=== PATIENT | female | born 1990 | race Caucasian/White ===

== ENCOUNTER 2025-02-12 01:17 | Inpatient (IN) | payer MEDICAID ==
[~2025-02-12] VITALS: Ht 162.6 cm; Wt 77.1 kg
[2025-02-12 02:56] LABS: CARBON DIOXIDE 18 mEq/L (21-32); CHLORIDE 107 mEq/L (98-107); POTASSIUM 3.3 mEq/L (3.5-5.1); SODIUM 138 mEq/L (136-145)
[2025-02-12 02:57] LABS: CALCIUM 9.6 mg/dL (8.7-10.4)
[2025-02-12 02:58] LABS: BASOPHILS % 0.6 % (0.0-2.0); EOSINOPHILS % 4.8 % (0.0-5.0); HEMATOCRIT. 41.5 % (36.0-48.0); HEMOGLOBIN. 13.8 g/dL (12.0-16.0); MEAN CORPUSCULAR HEMOGLOBIN 28.4 pg (28.0-32.0); MEAN CORPUSCULAR HGB CONC 33.3 g/dL (31.0-37.0); MEAN CORPUSCULAR VOLUME 85.1 fL (81.0-99.0); MEAN PLATELET VOLUME 8.6 fl (7.4-10.4); MONOCYTES % 5.5 % (2.0-8.0); NEUTROPHILS % 59.1 % (40.0-76.0); PLATELET 306 x1000/uL (130-400); RED BLOOD CELL COUNT 4.87 mill/uL (4.2-5.4); RED CELL DISTRIBUTION WIDTH 13.5 % (11.6-14.6); WHITE BLOOD COUNT 10.6 x1000/uL (4.5-11.0)
[2025-02-12 03:01] LABS: CREATININE 0.7 mg/dL (0.6-1.0); GLUCOSE 117 mg/dL (70-105)
[2025-02-12 03:02] LABS: UREA NITROGEN BLOOD 16 mg/dL (9-23)
[2025-02-12 03:03] LABS: ALANINE AMINOTRANSFERASE 28 IU/L (10-49); ALBUMIN 4.4 g/dL (3.2-4.8); ASPARTATE AMINOTRANSFERASE 46 IU/L (<34)
[2025-02-12 03:04] LABS: BILIRUBIN TOTAL 0.4 mg/dL (0.1-1.0); PROTEIN TOTAL 6.8 g/dL (6.0-8.3)
[2025-02-12 03:20] LABS: HCG SCREEN NEGATIVE
[2025-02-12] MEDS: PANTOPRAZOLE SODIUM 40 MG/VIAL IV STA (04:29)
[2025-02-12] MEDS: ONDANSETRON HCL 4MG/2ML INJ IV STA (04:30)
[2025-02-12] MEDS: FAMOTIDINE 20MG/2ML VIAL IV STA (04:30)
[2025-02-12] MEDS: MORPHINE SULFATE 4 MG/ML INJ (FOR IV/IM USE) IV STA (04:31)
[2025-02-12 04:36] LABS: CLARITY URINE CLEAR (CLEAR); COLOR URINE YELLOW (YELLOW); GLUCOSE URINE NEGATIVE (NEGATIVE); KETONES URINE TRACE (NEGATIVE); LEUKOCYTE ESTERASE URINE NEGATIVE (NEGATIVE); NITRITE URINE NEGATIVE (NEGATIVE); OCCULT BLOOD URINE TRACE (NEGATIVE); PROTEIN URINE NEGATIVE (NEGATIVE); SPECIFIC GRAVITY URINE 1.014 (1.005-1.030); UROBILINOGEN URINE 0.2 E.U./dL (0.2-1.0)
[2025-02-12] MEDS: POTASSIUM CHLORIDE 20MEQ/PACKET PO ONE (05:24)
[2025-02-12 06:55] LABS: BACTERIA URINE TRACE; RBC URINE NONE SEEN /hpf (0-2); SQUAMOUS EPITHELIAL CELL URINE FEW /lpf (RARE/1+); WBC URINE NONE SEEN /hpf (0-2)
[2025-02-12 08:00] VITALS: BP 102/52; PULSE 51; RESP 18; TEMP 36.4; O2SAT 100
[2025-02-12] MEDS ORDERED: ONDANSETRON HCL 4MG/2ML INJ IV PRN (09:45)
[2025-02-12] MEDS ORDERED: DOCUSATE SODIUM 100MG CAPSULE PO PRN (09:45)
[2025-02-12] MEDS ORDERED: MORPHINE SULFATE 2 MG/ML INJ (NOT FOR IM USE) IV PRN (09:45)
[2025-02-12] MEDS ORDERED: IPRATROPIUM/ALBUTEROL 0.5-3(2.5)MG/3ML NEB HHN PRN (09:45)
[2025-02-12] MEDS ORDERED: CLONIDINE 0.1MG TABLET PO PRN (09:45)
[2025-02-12] MEDS ORDERED: ACETAMINOPHEN 325MG TABLET PO PRN ×2 (09:45)
[2025-02-12] MEDS: DEXT 5%/0.45% NACL 1000ML 1,000 ML IV SCH (09:45)
[2025-02-12] MEDS ORDERED: NALOXONE HCL 0.4MG/ML VIAL IV PRN (10:30)
[2025-02-12] MEDS: MORPHINE SULFATE 4 MG/ML INJ (FOR IV/IM USE) IV PRN (11:04)
[2025-02-12] MEDS: PANTOPRAZOLE SODIUM 40 MG/VIAL IV SCH (11:05)
[2025-02-12] MEDS: POTASSIUM CHLORIDE 20MEQ TABLET SR PO SCH (11:06)
[2025-02-12 11:21] VITALS: BP 102/52; PULSE 51; RESP 18; TEMP 36.5
[2025-02-12 12:00] VITALS: BP 101/60; PULSE 59; RESP 18; TEMP 36.6; O2SAT 100
[2025-02-12 12:44] LABS: *AMPHETAMINES SCREEN URINE NEGATIVE (NEGATIVE)
[2025-02-12 12:45] LABS: *BARBITURATES SCREEN URINE NEGATIVE (NEGATIVE); *BENZODIAZEPINES SCREEN URINE NEGATIVE (NEGATIVE); *COCAINE SCREEN URINE NEGATIVE (NEGATIVE); CANNABINOID URINE SCREEN NEGATIVE (NEGATIVE); ECSTASY MDMA SCREEN URINE NEGATIVE (NEGATIVE); METHADONE URINE SCREEN NEGATIVE (NEGATIVE); OPIATES URINE SCREEN NEGATIVE (NEGATIVE); PHENCYCLIDINE URINE SCREEN NEGATIVE (NEGATIVE)
[2025-02-12] MEDS: KETOROLAC 30MG/ML VIAL IV PRN (18:09)
[2025-02-12 20:00] VITALS: BP 111/68; PULSE 61; RESP 20; TEMP 36.3; O2SAT 99
[2025-02-13 04:00] VITALS: BP 97/62; PULSE 56; RESP 20; TEMP 36.2; O2SAT 99
[2025-02-13 08:00] VITALS: BP 101/56; PULSE 67; RESP 19; TEMP 36.5; O2SAT 97
[2025-02-13 10:15] LABS: BASOPHILS % 0.9 % (0.0-2.0); EOSINOPHILS % 9.5 % (0.0-5.0); HEMATOCRIT. 40.9 % (36.0-48.0); HEMOGLOBIN. 13.8 g/dL (12.0-16.0); LYMPHOCYTES % 34.1 % (20.0-50.0); MEAN CORPUSCULAR HEMOGLOBIN 29.2 pg (28.0-32.0); MEAN CORPUSCULAR HGB CONC 33.7 g/dL (31.0-37.0); MEAN CORPUSCULAR VOLUME 86.5 fL (81.0-99.0); MEAN PLATELET VOLUME 8.4 fl (7.4-10.4); MONOCYTES % 6.6 % (2.0-8.0); NEUTROPHILS % 48.9 % (40.0-76.0); PLATELET 302 x1000/uL (130-400); RED BLOOD CELL COUNT 4.73 mill/uL (4.2-5.4); RED CELL DISTRIBUTION WIDTH 13.7 % (11.6-14.6); WHITE BLOOD COUNT 6.5 x1000/uL (4.5-11.0)
[2025-02-13 10:29] LABS: CHLORIDE 106 mEq/L (98-107); POTASSIUM 4.2 mEq/L (3.5-5.1); SODIUM 138 mEq/L (136-145)
[2025-02-13 10:31] LABS: CALCIUM 9.1 mg/dL (8.7-10.4); CARBON DIOXIDE 24 mEq/L (21-32)
[2025-02-13 10:36] LABS: CREATININE 0.7 mg/dL (0.6-1.0); GLUCOSE 94 mg/dL (70-105)
[2025-02-13 10:38] LABS: ALANINE AMINOTRANSFERASE 45 IU/L (10-49); ALBUMIN 4.1 g/dL (3.2-4.8); AMYLASE 85 IU/L (30-118); ASPARTATE AMINOTRANSFERASE 31 IU/L (<34); UREA NITROGEN BLOOD 8 mg/dL (9-23)
[2025-02-13 10:39] LABS: BILIRUBIN TOTAL 0.7 mg/dL (0.1-1.0); PROTEIN TOTAL 6.6 g/dL (6.0-8.3)
[2025-02-13 12:00] VITALS: BP 105/62; PULSE 61; RESP 16; TEMP 36.2; O2SAT 98
[2025-02-13 16:00] VITALS: BP 102/64; PULSE 65; RESP 18; TEMP 36.3; O2SAT 99
[2025-02-13 20:00] VITALS: BP 101/63; PULSE 63; RESP 18; TEMP 36.7; O2SAT 99
[2025-02-14] VITALS: BP 95/62; PULSE 60; RESP 16; TEMP 36.8; O2SAT 98
[2025-02-14 09:56] LABS: BASOPHILS % 0.8 % (0.0-2.0); HEMATOCRIT. 39.3 % (36.0-48.0); LYMPHOCYTES % 34.2 % (20.0-50.0); MEAN CORPUSCULAR HEMOGLOBIN 28.4 pg (28.0-32.0); MEAN PLATELET VOLUME 8.6 fl (7.4-10.4); MONOCYTES % 5.8 % (2.0-8.0); NEUTROPHILS % 50.2 % (40.0-76.0); PLATELET 291 x1000/uL (130-400); RED BLOOD CELL COUNT 4.58 mill/uL (4.2-5.4); RED CELL DISTRIBUTION WIDTH 13.8 % (11.6-14.6); WHITE BLOOD COUNT 6.3 x1000/uL (4.5-11.0)
[2025-02-14 10:19] LABS: CHLORIDE 106 mEq/L (98-107); POTASSIUM 3.8 mEq/L (3.5-5.1); SODIUM 139 mEq/L (136-145)
[2025-02-14 10:20] LABS: CALCIUM 8.9 mg/dL (8.7-10.4); CARBON DIOXIDE 24 mEq/L (21-32)
[2025-02-14 10:25] LABS: CREATININE 0.7 mg/dL (0.6-1.0); GLUCOSE 124 mg/dL (70-105); UREA NITROGEN BLOOD 7 mg/dL (9-23)
[2025-02-14 10:27] LABS: ALANINE AMINOTRANSFERASE 36 IU/L (10-49); ALBUMIN 3.9 g/dL (3.2-4.8); ASPARTATE AMINOTRANSFERASE 23 IU/L (<34); BILIRUBIN TOTAL 0.8 mg/dL (0.1-1.0); PROTEIN TOTAL 6.2 g/dL (6.0-8.3)
[2025-02-14 11:17] VITALS: BP 95/57; PULSE 52; RESP 19; TEMP 36.6; O2SAT 98
[2025-02-14 12:00] VITALS: BP 103/61; PULSE 53; RESP 20; TEMP 36.5; O2SAT 99
[2025-02-14 16:00] VITALS: BP 98/58; PULSE 78; RESP 19; TEMP 36.5; O2SAT 100
[2025-02-14 20:00] VITALS: BP 100/62; PULSE 56; RESP 20; TEMP 36.1; O2SAT 99
[2025-02-15] VITALS: BP 109/70; PULSE 55; RESP 20; TEMP 36.1; O2SAT 99
[2025-02-15 04:00] VITALS: BP 97/52; PULSE 55; RESP 20; TEMP 36; O2SAT 100
[2025-02-15 08:00] VITALS: BP 96/60; PULSE 60; RESP 18; TEMP 36.8; O2SAT 99
[2025-02-15 10:16] LABS: BASOPHILS % 0.9 % (0.0-2.0); EOSINOPHILS % 6.4 % (0.0-5.0); HEMATOCRIT. 39.8 % (36.0-48.0); HEMOGLOBIN. 13.3 g/dL (12.0-16.0); LYMPHOCYTES % 29.5 % (20.0-50.0); MEAN CORPUSCULAR HGB CONC 33.5 g/dL (31.0-37.0); MEAN CORPUSCULAR VOLUME 86.6 fL (81.0-99.0); MEAN PLATELET VOLUME 8.3 fl (7.4-10.4); MONOCYTES % 5.2 % (2.0-8.0); PLATELET 295 x1000/uL (130-400); RED CELL DISTRIBUTION WIDTH 13.3 % (11.6-14.6); WHITE BLOOD COUNT 6.5 x1000/uL (4.5-11.0)
[2025-02-15 10:22] LABS: CHLORIDE 106 mEq/L (98-107); POTASSIUM 3.8 mEq/L (3.5-5.1); SODIUM 140 mEq/L (136-145)
[2025-02-15 10:23] LABS: CALCIUM 8.9 mg/dL (8.7-10.4); CARBON DIOXIDE 25 mEq/L (21-32)
[2025-02-15 10:28] LABS: CREATININE 0.7 mg/dL (0.6-1.0); GLUCOSE 123 mg/dL (70-105); UREA NITROGEN BLOOD 5 mg/dL (9-23)
[2025-02-15 10:30] LABS: ALANINE AMINOTRANSFERASE 38 IU/L (10-49); ALBUMIN 3.9 g/dL (3.2-4.8); ASPARTATE AMINOTRANSFERASE 26 IU/L (<34); BILIRUBIN TOTAL 0.8 mg/dL (0.1-1.0); PROTEIN TOTAL 6.3 g/dL (6.0-8.3)
[2025-02-15 12:00] VITALS: BP 101/62; PULSE 57; RESP 18; TEMP 36.7; O2SAT 99
[2025-02-15 16:00] VITALS: BP 109/64; PULSE 60; RESP 18; TEMP 36.8; O2SAT 99
[2025-02-15] MEDS: KETOROLAC 30MG/ML VIAL IV PRN (16:59)
[2025-02-15 20:00] VITALS: BP 102/62; PULSE 66; RESP 16; TEMP 36.7; O2SAT 97
[2025-02-16] VITALS: BP 99/62; PULSE 68; RESP 18; TEMP 36.6; O2SAT 98
[2025-02-16 04:00] VITALS: BP 98/61; PULSE 50; RESP 19; TEMP 36.6; O2SAT 98
[2025-02-16 07:35] VITALS: BP 101/59; PULSE 63; TEMP 98.2; O2SAT 98
[2025-02-16 08:00] VITALS: BP 103/66; PULSE 52; RESP 20; TEMP 36.7; O2SAT 98
== END 2025-02-16 11:25 | disposition short-term general hospital (02) ==
LOC: ER 01:17 → 8EST 07:27 → ENRESERV 07:41
PROVIDERS: ADMIT Internal Medicine; ATTEND Internal Medicine
DX: K80.50 Calculus of bile duct without cholangitis or cholecystitis without obstruction (principal); E87.6 Hypokalemia; K42.9 Umbilical hernia without obstruction or gangrene; Z90.49 Acquired absence of other specified parts of digestive tract
CPT/HCPCS: 36415; 74176; 74181; 80053; 80305; 81003; 82150; 83036; 83880; 84703; 85025; 93005; 99285; J1308; J1885; J2270; J2405; J2470